=== PATIENT | male | born 1950 | race Caucasian/White ===

== ENCOUNTER 2020-10-08 05:20 | Day surgery (SDC) | payer MEDICARE, OTHER ==
[2020-10-06 13:15] LABS: BASOPHILS % (AUTO) 1 % (0-1); EOSINOPHILS % (AUTO) 3 % (1-7); LYMPHOCYTES % (AUTO) 35 % (22-44); MEAN CORPUSCULAR HEMOGLOBIN 29.9 pg (27.5-34.5); MEAN CORPUSCULAR HGB CONC 33.6 g/dL (33.2-36.2); MEAN PLATELET VOLUME 8.1 fL (7.4-10.4); MONOCYTES % (AUTO) 9 % (2-9); NEUTROPHILS % (AUTO) 52 % (42-75); PLATELET COUNT 329 x10^3/uL (130-400); RED CELL DISTRIBUTION WIDTH 13.5 % (9.4-14.8)
[2020-10-06 13:21] LABS: INTERNATIONAL NORMALIZED RATIO 0.99 (0.93-1.1); PROTHROMBIN TIME 10.5 Seconds (9.6-11.5)
[2020-10-06 13:23] LABS: ANION GAP 4 mmol/L (5-15); CALCIUM 8.8 mg/dL (8.5-10.1); CHLORIDE 110 mmol/L (98-107)
[2020-10-06 13:24] LABS: CREATININE 0.81 mg/dL (0.7-1.3); MD NO
[~2020-10-08] VITALS: Ht 182.9 cm; Wt 110.7 kg
[~2020-10-08 05:20] MED LIST: AMLO-150 PO; [UNRECOGNIZED DRUG - REMARK] PO
[2020-10-08 06:09] VITALS: BP 137/69
[2020-10-08] MEDS ORDERED: LIDOCAINE-MPF 1%, 2ML INFIL ONE (06:30)
[2020-10-08] MEDS ORDERED: CHLORHEXIDINE 15 ML UDC MM ONE (06:30)
[2020-10-08] MEDS ORDERED: LACTATED RINGERS 1,000 ML IV SCH (06:30)
[2020-10-08] MEDS ORDERED: EPINEPHRINE 1 MG/ML, 1ML ONE (06:42)
[2020-10-08] MEDS ORDERED: BUPIVACAINE/PF 0.25% ONE (06:42)
[2020-10-08] MEDS ORDERED: BACITRACIN 50,000 UNIT ONE (06:42)
[2020-10-08] MEDS ORDERED: FENTANYL PF 100 MCG/2ML ONE (06:43)
[2020-10-08] MEDS ORDERED: EPHEDRINE 50 MG/ML, 1ML IM PRN (07:30)
[2020-10-08] MEDS ORDERED: HYDROmorphone 1 MG/ML, 1ML INJ IVPush PRN (07:30)
[2020-10-08] MEDS ORDERED: ONDANSETRON 2MG/ML, 2ML IVPush PRN (07:30)
[2020-10-08] MEDS ORDERED: hydrALAzine 20 MG/ML, 1ML IV PRN (07:30)
[2020-10-08] MEDS ORDERED: OXYcodone 5 MG/5 ML ORAL.SOL UDC PO PRN (07:30)
[2020-10-08] MEDS ORDERED: LABETALOL 5MG/ML, 20ML IV PRN (07:30)
[2020-10-08] MEDS ORDERED: ACETAMINOPHEN 325 MG TABLET PO PRN (07:30)
[2020-10-08] MEDS ORDERED: MEPERIDINE/PF 25MG/0.5ML IVPush PRN (07:30)
[2020-10-08] MEDS ORDERED: PROMETHAZINE 25 MG/ML, 1ML IVPush PRN (07:30)
[2020-10-08] MEDS ORDERED: LORazepam 2 MG/ML, 1ML IVPush PRN (07:30)
[2020-10-08] MEDS ORDERED: METHOCARBAMOL 1,000 MG in DEXTROSE 5% 100 ML IV PRN (07:30)
[2020-10-08] MEDS ORDERED: FENTANYL PF 100 MCG/2ML IV PRN (07:30)
[2020-10-08] MEDS ORDERED: EPHEDRINE 50 MG/ML, 1ML IVPush PRN (07:30)
[2020-10-08] MEDS ORDERED: EPHEDRINE 50 MG/ML, 1ML ONE (07:42)
[2020-10-08] MEDS ORDERED: DEXAMETHASONE 4 MG/ML, 1ML ONE (07:42)
[2020-10-08] MEDS ORDERED: GLYCOPYRROLATE 0.2MG/1ML, 5ML ONE (07:42)
[2020-10-08] MEDS ORDERED: CLINDAMYCIN PMX 900MG/50ML ONE (07:42)
[2020-10-08] MEDS ORDERED: ONDANSETRON 2MG/ML, 2ML ONE (07:42)
[2020-10-08] MEDS ORDERED: PROPOFOL 50 ML ONE (08:47)
[2020-10-08] MEDS ORDERED: HYDR-3240 PO (12:44)
== END 2020-10-08 10:15 | disposition home or self-care (01) ==
LOC: SDC 05:20 → EDSTATUS 12:00
PROVIDERS: ATTEND Neurological Surgery
DX: G62.9 Polyneuropathy, unspecified (principal); I10 Essential (primary) hypertension; G47.30 Sleep apnea, unspecified; Z98.890 Other specified postprocedural states; Z88.8 Allergy status to other drugs, medicaments and biological substances; Z79.899 Other long term (current) drug therapy; Z91.013 Allergy to seafood
CPT/HCPCS: 36415; 64795; 80048; 85025; 85610; 85730; 86850; 86900; 88302; 93005; J0171; J1100; J2405; J2704; J3010; J7120; U0003

== ENCOUNTER → 2020-12-24 | Outpatient (CLI) | payer MEDICARE, OTHER ==
[~2020-12-24] MED LIST changes: +HYDR-1067 PO; +NALTREXONE PO; +OLME40TA22 PO
[2020-12-24 17:05] LABS: BASOPHILS % (AUTO) 1 % (0-1); EOSINOPHILS % (AUTO) 3 % (1-7); LYMPHOCYTES % (AUTO) 37 % (22-44); MEAN CORPUSCULAR HEMOGLOBIN 30.1 pg (27.5-34.5); MEAN CORPUSCULAR HGB CONC 33.9 g/dL (33.2-36.2); MONOCYTES % (AUTO) 9 % (2-9); NEUTROPHILS % (AUTO) 50 % (42-75); PLATELET COUNT 294 x10^3/uL (130-400); RED BLOOD COUNT 4.48 x10^6/uL (4.38-5.82); RED CELL DISTRIBUTION WIDTH 13.9 % (9.4-14.8)
[2020-12-24 17:10] LABS: MD NO
[2020-12-24 17:18] LABS: CHLORIDE 112 mmol/L (98-107)
[2020-12-24 17:19] LABS: ALANINE AMINOTRANSFERASE 40 U/L (12-78); ANION GAP 8 mmol/L (5-15); CREATININE 0.85 mg/dL (0.7-1.3); INTERNATIONAL NORMALIZED RATIO 0.98 (0.93-1.1); PROTHROMBIN TIME 10.5 Seconds (9.6-11.5)
[2020-12-24 17:21] LABS: ALKALINE PHOSPHATASE 70 U/L (45-117); BILIRUBIN,TOTAL 0.3 mg/dL (0.2-1.0); TOTAL PROTEIN 7.6 g/dL (6.4-8.2)
== END | disposition home or self-care (01) ==
LOC: STAR 15:29
PROVIDERS: ATTEND Neurological Surgery
DX: Z01.812 Encounter for preprocedural laboratory examination (principal); Z20.822 Contact with and (suspected) exposure to COVID-19; R94.31 Abnormal electrocardiogram [ECG] [EKG]
CPT/HCPCS: 36415; 80053; 85025; 85610; 85730; 93005; U0003

== ENCOUNTER → 2020-12-24 | Outpatient (CLI) | payer OTHER, MEDICARE | END | disposition home or self-care (01) | LOC: LAB 16:35 | PROVIDERS: ATTEND Family Medicine | DX: G62.89 Other specified polyneuropathies (principal); T75.89XA Other specified effects of external causes, initial encounter | CPT/HCPCS: 82175; 82300; 83655; 83825 ==

== ENCOUNTER 2020-12-29 05:25 | Day surgery (SDC) | payer MEDICARE, OTHER ==
[2020-12-24 16:19] VITALS: BP 145/83
[~2020-12-29] VITALS: Ht 185.4 cm; Wt 112.0 kg
[2020-12-29 06:36] VITALS: BP 145/83
[2020-12-29] MEDS ORDERED: LACTATED RINGERS 1,000 ML IV SCH (07:00)
[2020-12-29] MEDS ORDERED: CHLORHEXIDINE 15 ML UDC MM ONE (07:00)
[2020-12-29] MEDS ORDERED: BUPIVACAINE/PF-EPI 0.5% 1:200K ONE (07:02)
[2020-12-29] MEDS ORDERED: BACITRACIN 50,000 UNIT ONE (07:02)
[2020-12-29] MEDS ORDERED: BACITRACIN OINT 500U/GM, 15 GM ONE (07:02)
[2020-12-29] MEDS ORDERED: MIDAZOLAM 1 MG/ML, 2ML ONE (07:31)
[2020-12-29] MEDS ORDERED: CLINDAMYCIN 150 MG/ML, 6ML ONE (07:48)
[2020-12-29] MEDS ORDERED: LIDOCAINE 1%, 20ML INFIL ONE (07:57)
[2020-12-29] MEDS ORDERED: FENTANYL PF 100 MCG/2ML ONE (08:06)
== END 2020-12-29 09:05 | disposition home or self-care (01) ==
LOC: OUT 05:25
PROVIDERS: ATTEND Neurological Surgery
DX: G72.49 Other inflammatory and immune myopathies, not elsewhere classified (principal); G62.89 Other specified polyneuropathies; I10 Essential (primary) hypertension; Z79.891 Long term (current) use of opiate analgesic; Z79.899 Other long term (current) drug therapy; Z88.8 Allergy status to other drugs, medicaments and biological substances; Z91.013 Allergy to seafood; Z82.61 Family history of arthritis; Z82.3 Family history of stroke; Z80.9 Family history of malignant neoplasm, unspecified
CPT/HCPCS: 20205; 88300; 99001; J2250; J3010; J7120